=== PATIENT | female | born 1950 | race Caucasian/White ===

== ENCOUNTER → 2016-11-15 | Outpatient (CLI) | payer MEDICARE, OTHER ==
[~2016-11-15] MED LIST: AMLO5TAB2; CLOP75TA28; PAXIL; SIMV10TA84; TIOTCAP; TRIA25CA
[2016-11-15 13:03] LABS: Basophils # (auto) 0 uL; Basophils % (auto) 0.8 % (0.0-2.0); Eosinophils # (auto) 0.1 uL; Eosinophils % (auto) 2.9 % (0.0-7.0); Hematocrit 40.2 % (36.0-46.0); Hemoglobin 12.7 g/dL (12.2-16.2); Lymphocytes % (auto) 25.4 % (10.0-50.0); Mean Corpuscular Hemoglobin 28.5 pg (28.0-32.0); Mean Corpuscular Hgb Conc. 31.7 g/dL (32.0-36.0); Mean Corpuscular Volume 89.8 fL (80.0-100.0); Mean Platelet Volume 8.5 fL (7.4-10.4); Monocytes # (auto) 0.4 uL; Monocytes % (auto) 9.7 % (0.0-12.0); Neutrophils # (auto) 2.4 uL; Neutrophils % (auto) 61.2 % (37.0-80.0); Platelet Count (auto) 284 10^3/uL (140-450); Red Cell Distribution Width 14.8 % (11.6-16.0); White Blood Cell 3.9 10^3/uL (4.4-10.8)
[2016-11-15 13:23] LABS: BUN/Creatinine Ratio 20.7; Calcium 9.1 mg/dL (8.5-10.1); Potassium 4.2 mmol/L (3.5-5.1)
== END | disposition home or self-care (01) ==
LOC: LAB 09:33
PROVIDERS: ATTEND Internal Medicine Cardiovascular Disease
DX: I10 Essential (primary) hypertension (principal); D64.9 Anemia, unspecified
CPT/HCPCS: 36415; 80048; 82728; 83540; 85025

== ENCOUNTER → 2018-03-29 | Outpatient (CLI) | payer MEDICARE, BC | END | disposition home or self-care (01) | LOC: Rad HDHVI 11:21 | PROVIDERS: ATTEND Internal Medicine Cardiovascular Disease | DX: M48.061 Spinal stenosis, lumbar region without neurogenic claudication (principal); I70.0 Atherosclerosis of aorta; I10 Essential (primary) hypertension; E11.9 Type 2 diabetes mellitus without complications; E03.9 Hypothyroidism, unspecified | CPT/HCPCS: 72131 ==

== ENCOUNTER → 2018-06-15 | Outpatient (CLI) | payer MEDICARE, BC | END | disposition home or self-care (01) | LOC: LAB 10:07 | PROVIDERS: ATTEND Internal Medicine Cardiovascular Disease | DX: D35.1 Benign neoplasm of parathyroid gland (principal); B27.90 Infectious mononucleosis, unspecified without complication; R53.83 Other fatigue | CPT/HCPCS: 86644; 86645; 86664 ==

== ENCOUNTER → 2019-01-23 | Outpatient (CLI) | payer MEDICARE, BC ==
[~2019-01-23] MED LIST changes: +AMLO5TAB13; -AMLO5TAB2
== END | disposition home or self-care (01) ==
LOC: Rad HDHVI 10:05
PROVIDERS: ATTEND Internal Medicine Cardiovascular Disease
DX: I34.0 Nonrheumatic mitral (valve) insufficiency (principal); I10 Essential (primary) hypertension; R07.89 Other chest pain
CPT/HCPCS: 93306; 93880

== ENCOUNTER → 2019-04-11 | Outpatient (CLI) | payer MEDICARE, BC ==
[~2019-04-11] MED LIST changes: +MVI in SODIUM CHLORIDE 0.9% 1,000 ML IVB ONE; +MVI in SODIUM CHLORIDE 0.9% 1,010 ML ONE; +READI-CAT 2 (BARIUM SULF)(VANILLA SMOOTHIE) 450ML ONE
[2019-04-11 10:20] VITALS: BP 141/71
--- NOTE | 2019-04-11 10:20 | NUR ---
IN FOR CT ABDOMEN AND PELVIS AND FOR IV HYDRATION POST CT SCAN.
--- NOTE | 2019-04-11 10:30 | NUR ---
IV insertion IV access obtained, via clean sterile technique by inserting 22 gauge catheter at after attempt(s). IV secured properly. No trauma to site. Patient tolerated procedure well.
--- NOTE | 2019-04-11 10:51 | NUR ---
CT SCAN COMPLETED AND TOLERATED WELL. WITHOUT DISTRESS AND WITHOUT DISCOMFORT. START MVI BAG TO RIGHT AC. PT HAS A HISTORY OF GASTRIC BYPASS IN 1999. REPORTS UNABLE TO EAT, LOSING WEIGHT, WITH A CHRONIC SALT TASTE IN HER MOUTH.
--- NOTE | 2019-04-11 13:30 | NUR ---
MVI BAG COMPLETED.
[2019-04-11 13:31] VITALS: BP 146/69
--- NOTE | 2019-04-11 13:31 | NUR ---
CHF Discharge Instructions See e-MAR for any mediations given with this visit. Patient education given on disease process. Patient verbalized understanding. Previous labs reviewed. Patient discharged in stable condition with after care instructions and follow up appointment. MEDICATION ADMINISTRATION 0.9 % MVI AT 333 ML/HR. START AT 1020/STOP AT 1330 (900 ML)
== END | disposition home or self-care (01) ==
LOC: CHF HDHVI 10:07
PROVIDERS: ATTEND Internal Medicine Cardiovascular Disease
DX: E86.0 Dehydration (principal); R94.4 Abnormal results of kidney function studies; R53.83 Other fatigue; R10.9 Unspecified abdominal pain; I50.9 Heart failure, unspecified
CPT/HCPCS: 36415; 74176; 82565; 96365; 96366; G0463; J3411; J3475

== ENCOUNTER 2019-06-25 19:38 | Emergency (ER) | payer MEDICARE, OTHER ==
[~2019-06-25] VITALS: Ht 162.6 cm; Wt 61.2 kg
[~2019-06-25 19:38] MED LIST changes: -AMLO5TAB13; +AMLO5TAB15; -MVI in SODIUM CHLORIDE 0.9% 1,000 ML IVB ONE; -MVI in SODIUM CHLORIDE 0.9% 1,010 ML ONE; -READI-CAT 2 (BARIUM SULF)(VANILLA SMOOTHIE) 450ML ONE
[2019-06-25 21:37] LABS: Basophils # (auto) 0.1 uL; Basophils % (auto) 1.5 % (0.0-2.0); Eosinophils # (auto) 0.3 uL; Eosinophils % (auto) 5.8 % (0.0-7.0); Hematocrit 37.9 % (36.0-46.0); Hemoglobin 12.7 g/dL (12.2-16.2); Lymphocytes # (auto) 1.3 uL; Mean Corpuscular Hemoglobin 30.2 pg (28.0-32.0); Mean Corpuscular Hgb Conc. 33.4 g/dL (32.0-36.0); Mean Corpuscular Volume 90.3 fL (80.0-100.0); Monocytes # (auto) 0.6 uL; Monocytes % (auto) 11.1 % (0.0-12.0); Neutrophils # (auto) 2.9 uL; Neutrophils % (auto) 56.6 % (37.0-80.0); Platelet Count (auto) 285 10^3/uL (140-450); Red Blood Cells 4.19 10^6/uL (4.0-5.20); White Blood Cell 5.1 10^3/uL (4.4-10.8)
[2019-06-25 21:49] LABS: Alanine Aminotransferase 18 U/L (13-56); Albumin 4.2 g/dL (3.4-5.0); Anion Gap 7 (5-15); Aspartate Aminotransferase 18 U/L (15-37); BUN/Creatinine Ratio 8.4; Blood Urea Nitrogen 9 mg/dL (7-18); Carbon Dioxide 27 mmol/L (21-32); Chloride 103 mmol/L (98-107); GFR African American 65 mL/min; GFR Non-African American 54 mL/min; Glucose 88 mg/dL (74-106); Magnesium 2.2 mg/dL (1.6-2.6); Potassium 3.7 mmol/L (3.5-5.1); Sodium 137 mmol/L (136-145)
[2019-06-25 21:54] LABS: Alkaline Phosphatase 62 U/L (45-117); Bilirubin, Total 0.5 mg/dL (0.2-1.0); Total Protein 6.9 g/dL (6.4-8.2)
[2019-06-25 22:03] VITALS: BP 179/90
== END 2019-06-26 01:07 | disposition left against medical advice (07) ==
LOC: ER 19:47 → MERGE 19:47 → ER 06-26 01:07
DX: R07.89 Other chest pain (principal); R51 Headache; Z53.21 Procedure and treatment not carried out due to patient leaving prior to being seen by health care provider
CPT/HCPCS: 36415; 70450; 71045; 80053; 83735; 83880; 84484; 85025

== ENCOUNTER → 2019-09-14 | Outpatient (CLI) | payer MEDICARE, OTHER ==
[~2019-09-14] MED LIST changes: +IOHEXOL 350 MG/ML 100ML IJ ONE
[2019-09-14 09:16] VITALS: BP 123/62
[2019-09-14 10:30] VITALS: BP 142/72
--- NOTE | 2019-09-14 10:30 | NUR ---
CHF CLINIC Discharge Instructions See e-MAR for any mediations given with this visit. Patient education given on disease process. Patient verbalized understanding. Previous labs reviewed. Patient discharged in stable condition with after care instructions and follow up appointment. NOTE PATIENT EDUCATED TO DRINK PLENTY OF FLUID FOLLOWING IV CONTRAST, PATIENT VERBALIZED UNDERSTANDING.
== END | disposition home or self-care (01) ==
LOC: Rad HDHVI 08:56
PROVIDERS: ATTEND Internal Medicine Cardiovascular Disease
DX: I25.10 Atherosclerotic heart disease of native coronary artery without angina pectoris (principal); R94.4 Abnormal results of kidney function studies; M54.5 Low back pain; K82.8 Other specified diseases of gallbladder; M85.88 Other specified disorders of bone density and structure, other site; T17.890A Other foreign object in other parts of respiratory tract causing asphyxiation, initial encounter; X58.XXXA Exposure to other specified factors, initial encounter; Y93.89 Activity, other specified; Y92.89 Other specified places as the place of occurrence of the external cause; Y99.8 Other external cause status
CPT/HCPCS: 36415; 71260; 82565; G0463; Q9967

== ENCOUNTER → 2019-10-08 | Outpatient (CLI) | payer MEDICARE, OTHER ==
[~2019-10-08] MED LIST changes: -IOHEXOL 350 MG/ML 100ML IJ ONE
== END | disposition home or self-care (01) ==
LOC: Rad HDHVI 11:37
PROVIDERS: ATTEND Internal Medicine Cardiovascular Disease
DX: R05 Cough (principal); R68.89 Other general symptoms and signs
CPT/HCPCS: 71046

== ENCOUNTER → 2020-03-26 | Outpatient (CLI) | payer MEDICARE, BC | END | disposition home or self-care (01) | LOC: Rad HDHVI 13:01 | PROVIDERS: ATTEND Internal Medicine Cardiovascular Disease | DX: I10 Essential (primary) hypertension (principal); R00.2 Palpitations; R06.02 Shortness of breath; E78.00 Pure hypercholesterolemia, unspecified | CPT/HCPCS: 93306 ==

== ENCOUNTER → 2020-03-28 | Outpatient (CLI) | payer MEDICARE, BC ==
[~2020-03-28] VITALS: Ht 162.6 cm; Wt 59.0 kg
[~2020-03-28] MED LIST changes: +ADENOSINE 50 MG in GIVE UN-DILUTED 0 ML IV ONE; +ADENOSINE 90 MG/30 ML INJ IV ONE
== END | disposition home or self-care (01) ==
LOC: Rad HDHVI 09:22
PROVIDERS: ATTEND Internal Medicine Cardiovascular Disease
DX: R51 Headache (principal)
CPT/HCPCS: 78452; 93005; 96374; 96375; A9500; J0153

== ENCOUNTER → 2020-05-02 | Outpatient (CLI) | payer MEDICARE, BC ==
[~2020-05-02] VITALS: Ht 162.6 cm; Wt 59.9 kg
[~2020-05-02] MED LIST changes: +5-HY100C2 PO; -ADENOSINE 50 MG in GIVE UN-DILUTED 0 ML IV ONE; -ADENOSINE 90 MG/30 ML INJ IV ONE; +ASCO100076 PO; +ASPI1TAB19 PO; +CHOL20007 PO; +FORMPOW9; +FURO1TAB33 PO; +HYDR-531 PO; +MAGN250T3 PO; +MULT-927 PO; +OLME20TA53 PO; +OMEP-263 PO; +POTA-220 PO; +VALA500T PO
[2020-05-02 09:30] VITALS: BP 120/72
--- NOTE | 2020-05-02 09:30 | NUR ---
CLINIC PT ARRIVED TO THE [facility] FOR PRE OP CXR, AND EKG, AND LABS. A/OX4, AMBULATORY. BREATHING IS EVEN AND UNLABORED.
--- NOTE | 2020-05-02 09:54 | NUR ---
EKG DONE BY FERNANDO GEE SR 62
[2020-05-02 10:06] VITALS: BP 124/67
--- NOTE | 2020-05-02 10:06 | NUR ---
Pre-Op Discharge Summary: See e-MAR for any medications given for this visit. Pre-op orders received and carried out per MD of EKG, LABS and chest xrays. Patient given a copy of EKG with instructions to go to [facility] out patient for further follow up care. NOTE EKG DONE BY FERNANDO GEE
[2020-05-02 12:06] LABS: Calcium 9.3 mg/dL (8.5-10.1); Potassium 4.2 mmol/L (3.5-5.1)
[2020-05-02 12:10] LABS: Basophils # (auto) 0.1 10 ^3/uL (0-0.2); Basophils % (auto) 0.9 % (0.0-2.0); Eosinophils # (auto) 0.4 10 ^3/uL (0-0.8); Eosinophils % (auto) 7.9 % (0.0-7.0); Hematocrit 40.3 % (36.0-46.0); Hemoglobin 13.8 g/dL (12.2-16.2); Lymphocytes # (auto) 1.1 10 ^3/uL (0.4-5.4); Lymphocytes % (auto) 20.5 % (10.0-50.0); Mean Corpuscular Hemoglobin 32.5 pg (28.0-32.0); Mean Corpuscular Hgb Conc. 34.2 g/dL (32.0-36.0); Mean Corpuscular Volume 95.2 fL (80.0-100.0); Monocytes # (auto) 0.5 10 ^3/uL (0-1.3); Monocytes % (auto) 8.9 % (0.0-12.0); Neutrophils # (auto) 3.3 10 ^3/uL (1.6-8.6); Neutrophils % (auto) 61.8 % (37.0-80.0); Platelet Count (auto) 282 10^3/uL (140-450); Red Blood Cells 4.24 10^6/uL (4.0-5.20); Red Cell Distribution Width 13.6 % (11.8-14.3); White Blood Cell 5.4 10^3/uL (4.4-10.8)
[2020-05-02 12:16] LABS: INR 1.03 (0.9-1.15)
== END | disposition home or self-care (01) ==
LOC: Rad HDHVI 09:13
PROVIDERS: ATTEND Internal Medicine Cardiovascular Disease
DX: Z01.812 Encounter for preprocedural laboratory examination (principal); I10 Essential (primary) hypertension; D64.9 Anemia, unspecified; R79.1 Abnormal coagulation profile; R06.02 Shortness of breath; R68.84 Jaw pain; I70.0 Atherosclerosis of aorta
CPT/HCPCS: 36415; 71046; 80048; 85025; 85610; 85730; 93005; G0463

== ENCOUNTER 2020-05-08 09:04 | Day surgery (SDC) | payer MEDICARE, BC ==
[~2020-05-08] VITALS: Ht 162.6 cm; Wt 60.0 kg
[~2020-05-08 09:04] MED LIST changes: -AMLO5TAB15; -CLOP75TA28; -PAXIL; -SIMV10TA84; -TIOTCAP; -TRIA25CA
[2020-05-08] MEDS ORDERED: LIDOCAINE 2%HCL (LOCAL ANESTH.) INJ 20ML MDV ONE (11:07)
[2020-05-08] MEDS ORDERED: IOHEXOL 350 MG/ML 100ML IJ ONE (11:14)
[2020-05-08] MEDS ORDERED: fentaNYL CITRATE 100 MCG/2 ML VL ONE (11:32)
[2020-05-08] MEDS ORDERED: MIDAZOLAM HCL 1MG/1ML-2 ML VIAL ONE (11:32)
[2020-05-08] MEDS ORDERED: ANGIOMAX 250 MG VIAL IV ONE (11:36)
[2020-05-08] MEDS ORDERED: SODIUM CHL 0.9% 50 ML ONE (11:36)
[2020-05-08] MEDS ORDERED: TICAGRELOR 90 MG TAB ONE (11:58)
[2020-05-08] MEDS ORDERED: ASPirin 325 MG TAB ONE (11:59)
[2020-05-08] MEDS ORDERED: HYDROcodone-ACET 10/325MG TAB PO ONE (13:30)
== END 2020-05-08 17:07 | disposition home or self-care (01) ==
LOC: CATH 09:04
PROVIDERS: ATTEND Internal Medicine Cardiovascular Disease
DX: R06.02 Shortness of breath (principal); I25.10 Atherosclerotic heart disease of native coronary artery without angina pectoris; I10 Essential (primary) hypertension; E78.5 Hyperlipidemia, unspecified; I73.9 Peripheral vascular disease, unspecified; E03.9 Hypothyroidism, unspecified; F41.9 Anxiety disorder, unspecified; J44.9 Chronic obstructive pulmonary disease, unspecified; Z98.890 Other specified postprocedural states; Z79.82 Long term (current) use of aspirin; Z79.899 Other long term (current) drug therapy; Z11.59 Encounter for screening for other viral diseases
CPT/HCPCS: 36224; 93460; C1725; C1751; C1760; C1769; C1874; C1887; C1894; C9600; J0583; J1644; J2250; J3010; J7030; Q9967; U0003; 99152; 99153

== ENCOUNTER → 2020-06-17 | Outpatient (CLI) | payer MEDICARE, BC | END | disposition home or self-care (01) | LOC: Rad HDHVI 15:58 | PROVIDERS: ATTEND Internal Medicine Cardiovascular Disease | DX: I25.10 Atherosclerotic heart disease of native coronary artery without angina pectoris (principal); I65.29 Occlusion and stenosis of unspecified carotid artery; R06.02 Shortness of breath | CPT/HCPCS: 93306 ==

== ENCOUNTER → 2020-12-23 | Outpatient (CLI) | payer MEDICARE, BC | END | disposition home or self-care (01) | LOC: Rad HDHVI 10:17 | PROVIDERS: ATTEND Internal Medicine Cardiovascular Disease | DX: I34.0 Nonrheumatic mitral (valve) insufficiency (principal); R00.2 Palpitations; I20.9 Angina pectoris, unspecified | CPT/HCPCS: 93306 ==

== ENCOUNTER → 2020-12-25 | Outpatient (CLI) | payer MEDICARE, BC ==
[~2020-12-25] VITALS: Ht 162.6 cm; Wt 59.0 kg
[~2020-12-25] MED LIST changes: +ADENOSINE 50 MG in GIVE UN-DILUTED 0 ML IV ONE; +ADENOSINE 90 MG/30 ML INJ IV ONE
== END | disposition home or self-care (01) ==
LOC: Rad HDHVI 09:10
PROVIDERS: ATTEND Internal Medicine Cardiovascular Disease
DX: R07.89 Other chest pain (principal); I10 Essential (primary) hypertension; I25.10 Atherosclerotic heart disease of native coronary artery without angina pectoris; E78.5 Hyperlipidemia, unspecified; R42 Dizziness and giddiness; Z82.49 Family history of ischemic heart disease and other diseases of the circulatory system
CPT/HCPCS: 78452; 93005; 96374; 96375; A9500; J0153

== ENCOUNTER → 2021-07-15 | Outpatient (CLI) | payer MEDICARE, BC ==
[~2021-07-15] MED LIST changes: -ADENOSINE 50 MG in GIVE UN-DILUTED 0 ML IV ONE; -ADENOSINE 90 MG/30 ML INJ IV ONE
[2021-07-15 09:46] LABS: Urine Blood Negative /uL (Negative); Urine Specific Gravity 1.017 (1.001-1.035)
[2021-07-15 09:58] LABS: Albumin 3.8 g/dL (3.4-5.0); Calcium 9.2 mg/dL (8.5-10.1); Potassium 3.8 mmol/L (3.5-5.1)
[2021-07-15 09:59] LABS: Basophils # (auto) 0.1 10 ^3/uL (0-0.2); Basophils % (auto) 1.7 % (0.0-2.0); Eosinophils # (auto) 0.3 10 ^3/uL (0-0.8); Eosinophils % (auto) 6.5 % (0.0-7.0); Hematocrit 36.5 % (36.0-46.0); Hemoglobin 12.2 g/dL (12.2-16.2); Lymphocytes # (auto) 1.2 10 ^3/uL (0.4-5.4); Lymphocytes % (auto) 25.9 % (10.0-50.0); Mean Corpuscular Hemoglobin 29.7 pg (28.0-32.0); Mean Corpuscular Hgb Conc. 33.4 g/dL (32.0-36.0); Mean Corpuscular Volume 89.1 fL (80.0-100.0); Monocytes # (auto) 0.4 10 ^3/uL (0-1.3); Monocytes % (auto) 8.5 % (0.0-12.0); Neutrophils # (auto) 2.7 10 ^3/uL (1.6-8.6); Neutrophils % (auto) 57.4 % (37.0-80.0); Nucleated Red Blood Cells % 0.2 %; Red Blood Cells 4.09 10^6/uL (4.0-5.20); White Blood Cell 4.8 10^3/uL (4.4-10.8)
[2021-07-15 10:02] LABS: BUN/Creatinine Ratio 14.7; Bilirubin, Total 0.5 mg/dL (0.2-1.0); Total Protein 6.7 g/dL (6.4-8.2)
[2021-07-15 11:06] LABS: Free T4 (Free Thyroxine) 1.08 ng/dL (0.89-1.76)
== END | disposition home or self-care (01) ==
LOC: LAB 09:00
PROVIDERS: ATTEND Internal Medicine Cardiovascular Disease
DX: D51.3 Other dietary vitamin B12 deficiency anemia (principal); I10 Essential (primary) hypertension; E11.9 Type 2 diabetes mellitus without complications; E55.9 Vitamin D deficiency, unspecified; D64.9 Anemia, unspecified; R00.2 Palpitations; R53.1 Weakness; R30.0 Dysuria
CPT/HCPCS: 36415; 80053; 80061; 81003; 82306; 82607; 83036; 84439; 84443; 85025; 87086

== ENCOUNTER → 2022-02-04 | Outpatient (CLI) | payer MEDICARE, BC | END | disposition home or self-care (01) | LOC: Rad HDHVI 12:11 | PROVIDERS: ATTEND Internal Medicine | DX: M79.631 Pain in right forearm (principal) | CPT/HCPCS: 73090 ==

== ENCOUNTER → 2022-03-04 | Outpatient (CLI) | payer MEDICARE, BC ==
[2022-03-04 16:42] LABS: Urine Blood Negative /uL (Negative); Urine Specific Gravity 1.016 (1.001-1.035)
== END | disposition home or self-care (01) ==
LOC: LAB 11:45
PROVIDERS: ATTEND Internal Medicine
DX: N39.0 Urinary tract infection, site not specified (principal)
CPT/HCPCS: 81003; 87086; 87088; 87186

== ENCOUNTER → 2022-03-22 | Outpatient (CLI) | payer MEDICARE, BC ==
[2022-03-22 14:49] LABS: Urine Blood Negative /uL (Negative); Urine Specific Gravity 1.014 (1.001-1.035)
== END | disposition home or self-care (01) ==
LOC: LAB 13:00
PROVIDERS: ATTEND Internal Medicine Cardiovascular Disease
DX: N39.0 Urinary tract infection, site not specified (principal)
CPT/HCPCS: 81003; 87086

== ENCOUNTER → 2022-09-20 | Outpatient (CLI) | payer MEDICARE, BC | END | disposition home or self-care (01) | LOC: Rad HDHVI 10:46 | PROVIDERS: ATTEND Internal Medicine Cardiovascular Disease | DX: I08.3 Combined rheumatic disorders of mitral, aortic and tricuspid valves (principal); I10 Essential (primary) hypertension; R07.89 Other chest pain | CPT/HCPCS: 93306 ==

== ENCOUNTER → 2023-06-21 | Outpatient (CLI) | payer MEDICARE, BC ==
[~2023-06-21] MED LIST changes: -OMEP-263 PO; +OMEP-448 PO
== END | disposition home or self-care (01) ==
LOC: Rad HDHVI 10:23
PROVIDERS: ATTEND Internal Medicine Cardiovascular Disease
DX: I34.0 Nonrheumatic mitral (valve) insufficiency (principal); R07.89 Other chest pain; I11.9 Hypertensive heart disease without heart failure
CPT/HCPCS: 93306

== ENCOUNTER → 2023-07-06 | Outpatient (CLI) | payer MEDICARE, BC ==
[~2023-07-06] MED LIST changes: +ACET1CAP18 PO; +ACET1TAB PO; +CELE100C82 PO; +CLOP75TA28 PO; +GABA-1308 PO; +POTA10TA51 PO; +SELE200T23 PO; +ZINC50TA7 PO; +[UNRECOGNIZED DRUG - CODE] PO
[2023-07-06 12:14] VITALS: BP 161/74; PULSE 65; RESP 16; O2SAT 97
[2023-07-06 12:27] VITALS: BP 149/70; PULSE 63; RESP 16; O2SAT 97
== END | disposition home or self-care (01) ==
LOC: Rad HDHVI 12:11
PROVIDERS: ATTEND Internal Medicine Cardiovascular Disease
DX: Z01.818 Encounter for other preprocedural examination (principal); R06.02 Shortness of breath; I25.119 Atherosclerotic heart disease of native coronary artery with unspecified angina pectoris; R07.89 Other chest pain
CPT/HCPCS: 36415; 80048; 85025; 85610; 85730; 93005; G0463

== ENCOUNTER 2023-07-07 10:06 | Day surgery (SDC) | payer MEDICARE, BC ==
[2023-07-06 13:19] LABS: Basophils # (auto) 0.1 10 ^3/uL (0-0.2); Eosinophils # (auto) 0.2 10 ^3/uL (0-0.8); Monocytes # (auto) 0.8 10 ^3/uL (0-1.3); Neutrophils # (auto) 6.1 10 ^3/uL (1.6-8.6); Red Cell Distribution Width 16.5 % (11.8-14.3); White Blood Cell 8.8 10^3/uL (4.4-10.8)
[2023-07-06 13:20] LABS: Eosinophils % (auto) 2.7 % (0.0-7.0); Lymphocytes # (auto) 1.6 10 ^3/uL (0.4-5.4); Lymphocytes % (auto) 18.5 % (10.0-50.0); Mean Corpuscular Hemoglobin 24.3 pg (28.0-32.0); Mean Corpuscular Volume 75.8 fL (80.0-100.0); Monocytes % (auto) 8.7 % (0.0-12.0); Neutrophils % (auto) 69.1 % (37.0-80.0)
[2023-07-06 13:45] LABS: INR 1.11 (0.9-1.15); Partial Thromboplastin Time 28.8 SEC (24.5-34.5); Prothrombin Time 11.6 sec (9.3-11.8)
[2023-07-06 14:10] LABS: Chloride 101 mmol/L (98-107); Sodium 134 mmol/L (136-145)
[2023-07-06 14:11] LABS: Anion Gap 4 (5-15); Carbon Dioxide 29 mmol/L (20-30)
[2023-07-06 14:17] LABS: BUN/Creatinine Ratio 6.4 (10.0-20.0); Blood Urea Nitrogen 7 mg/dL (9-23); Glucose 84 mg/dL (74-106)
[~2023-07-07] VITALS: Ht 162.6 cm; Wt 58.5 kg
[~2023-07-07 10:06] MED LIST changes: -ACET1TAB PO; -FORMPOW9; -POTA10TA51 PO
[2023-07-07] MEDS ORDERED: ANGIOMAX 250 MG VIAL IV ONE (11:53)
[2023-07-07] MEDS ORDERED: fentaNYL CITRATE 100 MCG/2 ML VL ONE (11:53)
[2023-07-07] MEDS ORDERED: IOHEXOL 350 MG/ML 100ML IJ ONE (11:54)
[2023-07-07] MEDS ORDERED: SODIUM CHL 0.9% 0 ML ONE (11:54)
[2023-07-07] MEDS ORDERED: MIDAZOLAM HCL 2MG/2ML 2ml VIAL (1mg/ml) ONE (11:54)
[2023-07-07] MEDS ORDERED: LIDOCAINE 2%HCL (LOCAL ANESTH.) INJ 20ML MDV ONE (11:54)
[2023-07-07] MEDS ORDERED: ACET1TAB PO (14:14)
[2023-07-07] MEDS ORDERED: POTA10TA51 PO (14:14)
== END 2023-07-07 14:45 | disposition home or self-care (01) ==
LOC: CATH 10:06
PROVIDERS: ATTEND Internal Medicine Cardiovascular Disease
DX: R07.89 Other chest pain (principal); I11.0 Hypertensive heart disease with heart failure; I50.30 Unspecified diastolic (congestive) heart failure; Z79.899 Other long term (current) drug therapy; Z95.5 Presence of coronary angioplasty implant and graft; Z98.890 Other specified postprocedural states
CPT/HCPCS: 36415; 80048; 85025; 85610; 85730; 93458; C1894; J1644; J2250; J3010; J7030; Q9967; 99152

== ENCOUNTER 2023-10-16 21:56 | Inpatient (IN) | payer MEDICARE, BC ==
[~2023-10-16] VITALS: Ht 162.6 cm; Wt 54.2 kg
[~2023-10-16 21:56] MED LIST changes: -ACET1CAP18 PO; +ACET1TAB PO; -POTA-220 PO; +POTA10TA51 PO
[2023-10-17] VITALS (7 sets, daily range): BP systolic 148–166; BP diastolic 70–78; PULSE 76–97; RESP 12–16; TEMP 97.5–99.5; O2SAT 95–98
[2023-10-17] MEDS ORDERED: CELE200C PO (02:59)
[2023-10-17] MEDS ORDERED: GABA-1308 PO (02:59)
[2023-10-17] MEDS ORDERED: FURO1TAB33 PO (02:59)
[2023-10-17] MEDS ORDERED: OLME20TA53 PO (02:59)
[2023-10-17] MEDS ORDERED: OMEP20TA PO (02:59)
[2023-10-17] MEDS ORDERED: VALA-30 PO (02:59)
[2023-10-17] MEDS ORDERED: CLOP75TA28 PO (02:59)
[2023-10-17] MEDS ORDERED: ASPI81CH59 PO (02:59)
[2023-10-17] MEDS: PIPERACILLIN-TAZO 4.5GM 100 ML IV SCH ×3 (05:34→22:09)
[2023-10-17] MEDS: HYDROmorphone HCL 2 MG/ML VL/or syr IV PRN ×2 (05:35→18:15)
[2023-10-17 06:01] LABS: Hemoglobin 9.1 g/dL (12.2-16.2); Mean Corpuscular Hemoglobin 23.9 pg (28.0-32.0)
[2023-10-17 06:05] LABS: Basophils # (auto) 0 10 ^3/uL (0-0.2); Basophils % (auto) 0.1 % (0.0-2.0); Eosinophils # (auto) 0.2 10 ^3/uL (0-0.8); Eosinophils % (auto) 0.9 % (0.0-7.0); Hematocrit 28.7 % (36.0-46.0); Lymphocytes # (auto) 1.6 10 ^3/uL (0.4-5.4); Lymphocytes % (auto) 8.1 % (10.0-50.0); Mean Corpuscular Hgb Conc. 31.9 g/dL (32.0-36.0); Mean Corpuscular Volume 75.1 fL (80.0-100.0); Monocytes # (auto) 1.8 10 ^3/uL (0-1.3); Monocytes % (auto) 9.5 % (0.0-12.0); Neutrophils # (auto) 15.8 10 ^3/uL (1.6-8.6); Neutrophils % (auto) 81.4 % (37.0-80.0); Red Blood Cells 3.81 10^6/uL (4.0-5.20); Red Cell Distribution Width 18.7 % (11.8-14.3); White Blood Cell 19.5 10^3/uL (4.4-10.8)
[2023-10-17] MEDS: SODIUM CHLORIDE 0.9% 1,000 ML IV SCH ×2 (06:07→17:35)
[2023-10-17 06:18] LABS: Alanine Aminotransferase 16 U/L (7-40); Alkaline Phosphatase 116 U/L (46-116); Anion Gap 9 (5-15); Aspartate Aminotransferase 20 U/L (13-40); BUN/Creatinine Ratio 19.5 (10.0-20.0); Blood Urea Nitrogen 16 mg/dL (9-23); Calcium 8.8 mg/dL (8.5-10.1); Carbon Dioxide 24 mmol/L (20-30); Chloride 103 mmol/L (98-107); Glucose 78 mg/dL (74-106); Potassium 3.9 mmol/L (3.5-5.1); Sodium 136 mmol/L (136-145)
[2023-10-17 06:19] LABS: Albumin 3.4 g/dL (3.2-4.8); Bilirubin, Total 0.2 mg/dL (0.2-1.0); Total Protein 5.2 g/dL (5.7-8.2)
[2023-10-17] MEDS ORDERED: OMNIPAQUE 12mg/ml 500ml ORAL SOLUTION PO ONE (14:36)
[2023-10-17] MEDS ORDERED: IOHEXOL 300 MG/ML 100ML BOTTLE IJ ONE (16:08)
[2023-10-17] MEDS ORDERED: IOHEXOL 350 MG/ML 100ML IJ ONE (23:17)
[2023-10-18] VITALS (7 sets, daily range): BP systolic 125–170; BP diastolic 66–87; PULSE 59–105; RESP 15–20; TEMP 97.9–98.9; O2SAT 97–99
[2023-10-18] MEDS: PIPERACILLIN-TAZO 4.5GM 100 ML IV SCH ×3 (06:44→22:27)
[2023-10-18] MEDS: SODIUM CHLORIDE 0.9% 1,000 ML IV SCH ×2 (06:55→22:30)
[2023-10-18] MEDS: cloNIDine HCL 0.1 MG TAB PO PRN ×2 (07:46→18:04)
[2023-10-18 08:12] LABS: INR 1.06 (0.9-1.15); Partial Thromboplastin Time 33.8 SEC (24.5-34.5); Prothrombin Time 11.1 sec (9.3-11.8)
[2023-10-19] VITALS (8 sets, daily range): BP systolic 106–177; BP diastolic 54–89; PULSE 71–94; RESP 16–18; TEMP 97.5–98.6; O2SAT 94–100
[2023-10-19] MEDS: PIPERACILLIN-TAZO 4.5GM 100 ML IV SCH ×3 (05:47→21:25)
[2023-10-19] MEDS: SODIUM CHLORIDE 0.9% 1,000 ML IV SCH ×2 (09:06→22:55)
[2023-10-19] MEDS: HYDROmorphone HCL 2 MG/ML VL/or syr IV PRN ×7 (09:09→20:22)
[2023-10-19] MEDS: cloNIDine HCL 0.1 MG TAB PO PRN (09:10)
[2023-10-19] MEDS ORDERED: metroNIDAZOLE 500MG/100ML 100 ML IV ONE (09:53)
[2023-10-19] MEDS ORDERED: SUCCINYLCHOLINE CHLORIDE 20 MG/ML 10ML VIAL IV ONE (10:05)
[2023-10-19] MEDS ORDERED: fentaNYL CITRATE 100 MCG/2 ML VL ONE (10:08)
[2023-10-19] MEDS ORDERED: ROCURONIUM 10MG/ML 10ML VIAL IV ONE (10:23)
[2023-10-19] MEDS ORDERED: DexAMETHasone SOD PHOS 10MG/1ML VIAL INJ ONE (10:23)
[2023-10-19] MEDS ORDERED: ONDANSETRON HCL 4 MG/2 ML VIAL ONE (10:23)
[2023-10-19] MEDS ORDERED: PROPOFOL 10 MG/ML 20 ML IV ONE (10:23)
[2023-10-19] MEDS ORDERED: ePHEDrine SULFATE 50 MG/ML AMP ONE (10:28)
[2023-10-19] MEDS ORDERED: MEPERIDINE HCL (25 MG/ML) 1ML VIAL ONE (10:43)
[2023-10-19] MEDS ORDERED: LABETALOL HCL 5 MG/ML ML 20ML VIAL IV ONE (10:54)
[2023-10-19] MEDS ORDERED: SUGAMMADEX 200mg/2ml Vial (100MG/ML) IV ONE ×2 (11:07→11:08)
[2023-10-19] MEDS ORDERED: ONDANSETRON HCL 4 MG/2 ML VIAL IV PRN ×2 (11:30→12:00)
[2023-10-19] MEDS ORDERED: ACETAMINOPHEN/CODEINE#3 (300/30mg) TAB PO PRN (11:30)
[2023-10-19] MEDS ORDERED: HYDROmorphone HCL 2 MG/ML VL/or syr ONE (11:52)
[2023-10-19] MEDS ORDERED: MEPERIDINE HCL (25 MG/ML) 1ML VIAL IV PRN (12:00)
[2023-10-19] MEDS: D5W/SOD CHL 0.45%/KCL 20MEQ 1,000 ML IV SCH ×2 (16:05→20:26)
[2023-10-20] MEDS: HYDROmorphone HCL 2 MG/ML VL/or syr IV PRN ×3 (00:07→14:15)
[2023-10-20] MEDS: D5W/SOD CHL 0.45%/KCL 20MEQ 1,000 ML IV SCH ×3 (04:10→14:28)
[2023-10-20 05:00] VITALS: BP 115/64; PULSE 75; RESP 16; TEMP 98; O2SAT 98
[2023-10-20] MEDS: PIPERACILLIN-TAZO 4.5GM 100 ML IV SCH ×2 (07:24→14:16)
[2023-10-20 07:33] LABS: Basophils # (auto) 0.1 10 ^3/uL (0-0.2); Eosinophils # (auto) 0 10 ^3/uL (0-0.8); Eosinophils % (auto) 0.2 % (0.0-7.0); Hemoglobin 9.6 g/dL (12.2-16.2)
[2023-10-20 07:36] LABS: Basophils % (auto) 0.6 % (0.0-2.0); Hematocrit 29.9 % (36.0-46.0); Lymphocytes # (auto) 1.4 10 ^3/uL (0.4-5.4); Lymphocytes % (auto) 9.3 % (10.0-50.0); Mean Corpuscular Hemoglobin 24.5 pg (28.0-32.0); Mean Corpuscular Hgb Conc. 32.1 g/dL (32.0-36.0); Mean Corpuscular Volume 76.1 fL (80.0-100.0); Monocytes # (auto) 1.4 10 ^3/uL (0-1.3); Monocytes % (auto) 9.3 % (0.0-12.0); Neutrophils # (auto) 12.1 10 ^3/uL (1.6-8.6); Neutrophils % (auto) 80.6 % (37.0-80.0); Red Blood Cells 3.93 10^6/uL (4.0-5.20); Red Cell Distribution Width 18.5 % (11.8-14.3); White Blood Cell 15.1 10^3/uL (4.4-10.8)
[2023-10-20 08:17] VITALS: RESP 18; O2SAT 96
[2023-10-20 09:00] VITALS: BP 172/79; PULSE 75; RESP 18; TEMP 98; O2SAT 93
[2023-10-20 09:15] VITALS: BP 130/72
[2023-10-20] MEDS ORDERED: PANTOPRAZOLE 40 MG/10 ML VIAL INJ IV SCH (10:00)
[2023-10-20 13:00] VITALS: BP 151/69; PULSE 72; RESP 18; TEMP 98.4; O2SAT 97
[2023-10-20 15:59] VITALS: BP 142/79; PULSE 76; RESP 18; TEMP 36.9; O2SAT 94
== END 2023-10-20 16:50 | disposition home or self-care (01) | DRG 419 ==
LOC: CENTRAL 10-17 01:06
PROVIDERS: ADMIT Internal Medicine Cardiovascular Disease; ATTEND Internal Medicine Cardiovascular Disease
PROC: 0FT44ZZ Resection of Gallbladder, Percutaneous Endoscopic Approach (ICD-10-PCS; principal; 2023-10-19 10:18)
DX: K80.00 Calculus of gallbladder with acute cholecystitis without obstruction (principal); K82.8 Other specified diseases of gallbladder; B02.9 Zoster without complications; D72.829 Elevated white blood cell count, unspecified; G47.33 Obstructive sleep apnea (adult) (pediatric); K21.9 Gastro-esophageal reflux disease without esophagitis; I10 Essential (primary) hypertension; I25.10 Atherosclerotic heart disease of native coronary artery without angina pectoris; Z98.61 Coronary angioplasty status; Z86.73 Personal history of transient ischemic attack (TIA), and cerebral infarction without residual deficits; Z82.49 Family history of ischemic heart disease and other diseases of the circulatory system; Z79.899 Other long term (current) drug therapy; Z91.048 Other nonmedicinal substance allergy status; Z79.82 Long term (current) use of aspirin; Z87.891 Personal history of nicotine dependence; Z98.84 Bariatric surgery status
CPT/HCPCS: 36415; 71045; 74177; 74181; 76705; 78226; 80053; 82247; 85025; 85610; 85730; 86850; 86900; 86901; 93306; C9113; G0378; J0330; J1100; J2405; J2543; J2704; J3490

== ENCOUNTER → 2024-04-10 | Outpatient (CLI) | payer MEDICARE, BC ==
[~2024-04-10] MED LIST changes: -CELE100C82 PO; +CELE200C PO; +POTA-36 PO; -POTA10TA51 PO
[2024-04-10 10:20] VITALS: BP 112/56; PULSE 74; RESP 18; O2SAT 97
[2024-04-10] MEDS: SODIUM FERRIC GLUC CPLEX 62.5MG/5ML VIAL IV ONE (11:01)
[2024-04-10] MEDS: SODIUM FERR GLUC 125 MG/in NS 100 ML IVPB KIT IV ONE (11:02)
[2024-04-10 11:42] VITALS: BP 142/62; PULSE 62; RESP 18; O2SAT 97
== END | disposition home or self-care (01) ==
LOC: CHF HDHVI 10:29
PROVIDERS: ATTEND Internal Medicine Cardiovascular Disease
DX: D50.9 Iron deficiency anemia, unspecified (principal); I25.10 Atherosclerotic heart disease of native coronary artery without angina pectoris; I10 Essential (primary) hypertension; K21.9 Gastro-esophageal reflux disease without esophagitis; Z79.82 Long term (current) use of aspirin; Z87.891 Personal history of nicotine dependence; Z86.73 Personal history of transient ischemic attack (TIA), and cerebral infarction without residual deficits; Z98.84 Bariatric surgery status
CPT/HCPCS: 96365; G0463; J2916

== ENCOUNTER → 2024-05-23 | Outpatient (CLI) | payer MEDICARE, BC ==
[2024-05-23 10:56] VITALS: BP 126/59; PULSE 73; RESP 18; O2SAT 97
[2024-05-23] MEDS: SODIUM FERRIC GLUC CPLEX 62.5MG/5ML VIAL IV ONE ×2 (11:05→11:45)
[2024-05-23 12:05] VITALS: BP 126/59; PULSE 73; RESP 18; O2SAT 97
== END | disposition home or self-care (01) ==
LOC: CHF HDHVI 10:56
PROVIDERS: ATTEND Internal Medicine Cardiovascular Disease
DX: D64.9 Anemia, unspecified (principal); I10 Essential (primary) hypertension; I25.10 Atherosclerotic heart disease of native coronary artery without angina pectoris; K21.9 Gastro-esophageal reflux disease without esophagitis; Z98.84 Bariatric surgery status; Z87.891 Personal history of nicotine dependence; Z86.73 Personal history of transient ischemic attack (TIA), and cerebral infarction without residual deficits; Z79.82 Long term (current) use of aspirin
CPT/HCPCS: 96365; G0463; J2916

== ENCOUNTER → 2024-05-28 | Outpatient (CLI) | payer MEDICARE, BC ==
[2024-05-28 13:44] VITALS: BP 125/59; PULSE 76; RESP 16; O2SAT 97
[2024-05-28] MEDS: SODIUM FERRIC GLUC CPLEX 62.5MG/5ML VIAL IV ONE (13:44)
[2024-05-28] MEDS: PATIENTS OWN MEDICATION (FERRLECIT 125 MG) IV ONE (14:30)
[2024-05-28 14:55] VITALS: BP 111/58; PULSE 72; RESP 18; O2SAT 94
== END | disposition home or self-care (01) ==
LOC: CHF HDHVI 13:41
PROVIDERS: ATTEND Internal Medicine Cardiovascular Disease
DX: D64.9 Anemia, unspecified (principal); I10 Essential (primary) hypertension; I25.10 Atherosclerotic heart disease of native coronary artery without angina pectoris; K21.9 Gastro-esophageal reflux disease without esophagitis; Z98.84 Bariatric surgery status; Z87.891 Personal history of nicotine dependence; Z86.73 Personal history of transient ischemic attack (TIA), and cerebral infarction without residual deficits; Z79.82 Long term (current) use of aspirin
CPT/HCPCS: 96365; G0463; J2916

== ENCOUNTER → 2024-11-26 | Outpatient (CLI) | payer MEDICARE, BC ==
[~2024-11-26] MED LIST changes: +IOHEXOL 350 MG/ML 100ML IJ ONE
[2024-11-26 10:43] VITALS: BP 122/63; PULSE 63; RESP 16; O2SAT 98
[2024-11-26 11:06] VITALS: BP 124/55; PULSE 60; RESP 16; O2SAT 98
--- NOTE | 2024-11-28 16:39 | DVH ---
INDICATION: R/O ANEURYSM, pain EXAM DATE: 11/26/2024 10:45 AM COMPARISON: None TECHNIQUE: CTA head without and with intravenous contrast. CTA neck with intravenous contrast. 3D image postprocessing was performed on a dedicated workstation and images were used for interpretation and reporting. RADIATION DOSE: Brain: CTDIvol: 50.66 mGy, DLP: 1707.17 mGy*cm Tracker: CTDIvol: 50.66 mGy, DLP: 1707.17 mGy*cm Angio: CTDIvol: 50.66 mGy, DLP: 1707.17 mGy*cm FINDINGS: CT head: There is no evidence of acute intracranial hemorrhage, extra-axial collection, mass effect, midline shift, herniation or hydrocephalus. The ventricles, sulci and cisterns are age appropriate. The saucedo-white differentiation is intact. The visualized paranasal sinuses and mastoid air cells are clear. The surrounding soft tissues and osseous structures are unremarkable. CTA head: There is normal enhancement of the visualized distal internal carotid, anterior and middle cerebral arteries. There is a normal anterior communicating artery complex. There are bilateral posterior communicating arteries. The vertebral, basilar, cerebellar and posterior cerebral arteries are within normal limits. The early parenchymal enhancement is grossly unremarkable. The visualized intracranial venous structures are grossly unremarkable. IMPRESSION: No evidence of acute intracranial hemorrhage, mass effect or hydrocephalus. No evidence of hemodynamically significant intracranial stenosis, proximal occlusion or aneurysm. No evidence of hemodynamically significant cervical stenosis or dissection. CAROTID STENOSIS REFERENCEDistal internal carotid artery diameter as the denominator for stenosis measurement:MILD = <50% stenosis.MODERATE = 50-69% stenosis.SEVERE = 70-89% stenosis.CRITICAL = 90-99% stenosis.OCCLUDED = 100% stenosis. [place]
== END | disposition home or self-care (01) ==
LOC: Rad HDHVI 10:26
PROVIDERS: ATTEND Internal Medicine Cardiovascular Disease
DX: R51.9 Headache, unspecified (principal)
CPT/HCPCS: 70496; G0463

== ENCOUNTER 2025-07-24 14:28 | Outpatient (CLI) | payer MEDICARE, BC ==
[~2025-07-24 14:28] MED LIST changes: -IOHEXOL 350 MG/ML 100ML IJ ONE
== END 2025-07-25 17:00 | disposition home or self-care (01) ==
LOC: Rad HDHVI 14:28
PROVIDERS: ATTEND Internal Medicine Cardiovascular Disease
DX: I66.12 Occlusion and stenosis of left anterior cerebral artery (principal); I11.0 Hypertensive heart disease with heart failure; I50.33 Acute on chronic diastolic (congestive) heart failure
CPT/HCPCS: 93880